=== PATIENT | male | born 2005 | race Caucasian/White ===

== ENCOUNTER 2024-04-22 10:58 | Emergency (ER) | payer BC, SELFPAY ==
[2024-04-22 11:16] VITALS: BP 106/63
[2024-04-22 11:45] LABS: Urine Albumin Negative (Neg - Trace); Urine Bilirubin Negative (Negative); Urine Character Clear (Clear); Urine Color Yellow; Urine Glucose Negative (Negative); Urine Ketone Negative (Negative); Urine Leukocyte Negative (Negative); Urine Nitrite Negative (Negative); Urine Occult Blood Negative (Negative); Urine Urobilinogen Negative (Neg - 1+)
[2024-04-22 12:22] VITALS: BP 127/67; BMI 30.4
--- NOTE | 2024-04-22 13:21 | ED.GENMED ---
History of Present Illness
General
Chief Complaint: Male Genito-Urinary Symptoms
Source: patient
Exam Limitations: none
Time Seen by Provider: 04/22/24 13:13
Nursing documentation reviewed up to this point in time: agreed with
History of Present Illness
History of Present Illness:
Patient is a 19-year-old male who presents to the ER for evaluation of right chest pain for the past 4 days. He denies any injury or lifting. He denies any swelling. He denies any urinary frequency or urgency. He denies any penile discharge. He
has been augments with his 1 girlfriend of several years. He denies any abdominal pain nausea vomiting back pain.
Review of Systems
Review of Systems
Allergies reviewed?: Yes
All Other Systems: ROS reviewed and negative except as documented in HPI and ROS
Constitutional: Reports no symptoms
ABD/GI: Reports no symptoms
: Reports other (right testicle pain /denies swelling )
Musculoskeletal: Reports no symptoms
Skin: Reports no symptoms
Neurological: Reports no symptoms
Psychiatric: Reports no symptoms
Phy Exam
General Physical Exam
General Presentation: no apparent distress
General age: appears stated age
General Skin: warm and dry
General Habitus: normal
General Mental: alert
General Hydration: appears well hydrated
Gastrointestinal Exam
Gastrointestinal Exam: non tender and soft
Genitourinary Exam Male
Exam Male: circumcised, no discharge, normal external genitalia, no evidence of trauma and other (Mild right-sided testicle tenderness no obvious swelling; minimally tender no over right inguinal area no palpable hernia)
Neurological Exam
Neurological Exam: alert and oriented x3
Musculoskeletal Exam
Musculoskeletal Exam: full ROM
Skin Exam
Skin Exam: normal color and warm/dry
Psychiatric Exam
Psychiatric Exam: normal mood/affect
Course
Orders/Labs/Results
Orders:
Orders
04/22/24 11:18
US Scrotum Urgent
Comment:
Reason For Exam: right testicular pain
04/22/24 11:29
Urinalysis Reflex To Culture Urgent
Date Specimen was Collected: 04/22/24
Time Specimen was Collected: 11:24
Vital Signs
Initial and Last Documented VS:
Initial Vital Signs
Temp Pulse Resp BP Pulse Ox
98.3 F 62 16 106/63 100
04/22/24 11:16 04/22/24 11:16 04/22/24 11:16 04/22/24 11:16 04/22/24 11:16
Last Documented Vital Signs
Temp Pulse Resp BP Pulse Ox
98.3 F 67 15 127/67 100
04/22/24 11:16 04/22/24 12:22 04/22/24 12:22 04/22/24 12:22 04/22/24 11:16
[employer] consulted with Physician
[employer] consulted with physician?: Yes
Name of Physician Consulted: Rey
MDM/Problems Addressed
Differential Diagnosis Includes:
Not limited to epididymitis, testicular torsion, hernia
MDM/Problems Addressed:
Patient is a 19-year-old male who presented with right testicle pain for the past several days no injury. He is in a monogamous relationship with his girlfriend of 2 years he denies any penile discharge. He denies any UTI symptoms. He denies any
injury. Abdomen soft no obvious swelling on exam mildly tender right testicle. Mildly tender to right inguinal area however no palpable hernia. Ultrasound and urine negative. No torsion however intermittent torsion considered case reviewed ED
physician will DC with outpatient urology follow-up with instructions to return if any worsening of symptoms. Will also have patient wear supportive underwear and to return if any worsening of symptom
*Critical Care Note
Total Time (30-74mins, 75-104mins- exclusive of procedures): Not Applicable
ED Attending Note
-
Portions of this chart may have been created with voice recognition software.� Occasional wrong word or��sound alike� substitutions may have occurred due to the inherent limitations of voice recognition software.
Discharge Plan
Departure
Patient Disposition: Home (Routine Discharge)
Date of Disposition: 04/22/24
Time of Disposition: 13:34
Patient with high blood pressure during this ER visit?: No
Covid-19: Not Applicable
Discharge Problem:
Pain in right testicle
Referrals:
Maxwell Rodriguez MD [Active] -
Edison Preston DO [Family Provider] -
Activity Restrictions/Additional Instructions:
As discussed your ultrasound was negative for any acute findings and your urinalysis was negative for infection. Wear supportive underwear and follow-up with urology for further evaluation. Return if any worsening of symptoms.
Interventions
Interventions:
*Risk Screen - Suicide Last Done: 04/22/24 11:16
*General Assessment Last Done: 04/22/24 11:16
*Neglect/Abuse Screening Last Done: 04/22/24 11:16
*ED COVID-19 Vaccine History Last Done: 04/22/24 11:16
ED-Male Genitourinary Assessment Last Done: 04/22/24 12:22
Discharge Date and Time
Print Language: SINHALA
== END 2024-04-22 14:15 | disposition home or self-care (01) ==
LOC: EMR 10:58
PROVIDERS: EMERGENCY PHYSICIAN Student in an Organized Health Care Education/Training Program; FAMILY PHYSICIAN Family Medicine
DX: N50.811 Right testicular pain (principal)
CPT/HCPCS: 99284; 76870; 81003; 93976